=== PATIENT | female | born 1975 | race Caucasian/White ===

== ENCOUNTER 2016-12-04 02:08 | Emergency (ER) | payer BC, OTHER ==
[~2016-12-04] VITALS: Ht 172.7 cm; Wt 65.0 kg
[2016-12-04 02:12] VITALS: BP 209/148; PULSE 137; RESP 18; TEMP 98.1; O2SAT 97
[2016-12-04 02:32] VITALS: BP 179/111; PULSE 102; RESP 18; TEMP 98.1; O2SAT 98
[2016-12-04 02:40] VITALS: BP_SYST 160; BP_SYST 190; BP_DIAS 110; BP_DIAS 75; PULSE 87; RESP 22; O2SAT 97
[2016-12-04] MEDS ORDERED: SODIUM CHLORIDE 0.9% FLUSH 5 ML FLUSH IVF PRN (02:45)
[2016-12-04] MEDS ORDERED: ASPIRIN 81 MG CHEW TAB PO ONE (02:45)
[2016-12-04 02:51] LABS: AUTOMATED NEUTROPHIL # 4.4 TH/MM3 (1.8-7.7); BASOPHIL # 0.1 TH/MM3 (0-0.2); BASOPHIL % 0.7 % (0.0-2.0); EOSINOPHIL # 0.3 TH/MM3 (0-0.4); EOSINOPHIL % 3.4 % (0.0-4.0); HEMATOCRIT 40.4 % (35.0-46.0); HEMO FLAGS DIFF FINAL; LYMPH % 42.4 % (9.0-44.0); LYMPHOCYTE # 4.1 TH/MM3 (1.0-4.8); MEAN CELL VOLUME 95.5 FL (80.0-100.0); MEAN CORPUSCULAR HEMOGLOBIN 34.2 PG (27.0-34.0); MEAN CORPUSCULAR HGB CONC 35.8 % (32.0-36.0); NEUT % 45.5 % (16.0-70.0); PLATELET COUNT 290 TH/MM3 (150-450); RED BLOOD COUNT 4.23 MIL/MM3 (4.00-5.30); RED CELL DISTRIBUTION WIDTH 12.7 % (11.6-17.2); WHITE BLOOD COUNT 9.6 TH/MM3 (4.0-11.0)
[2016-12-04 03:00] LABS: APTT (PATIENT) 28.3 SEC (24.3-30.1); INTERNATIONAL NORMALIZED RATIO 0.9 RATIO; PROTHROMBIN TIME - PATIENT 10.2 SEC (9.8-11.6)
[2016-12-04 03:36] LABS: ALKALINE PHOSPHATASE 74 U/L (45-117); ALT (GPT) 37 U/L (10-53); AST (GOT) 27 U/L (15-37); BLOOD UREA NITROGEN 10 MG/DL (7-18); CHLORIDE 108 MEQ/L (98-107); GLOMERULAR FILTRATION RATE 75 ML/MIN (>89); MAGNESIUM 1.9 MG/DL (1.5-2.5); SODIUM (NA) 144 MEQ/L (136-145); TOTAL BILIRUBIN ADULT 0.6 MG/DL (0.2-1.0)
[2016-12-04 03:38] LABS: ANION GAP 11 MEQ/L (5-15); BICARBONATE 25.1 MEQ/L (21.0-32.0)
[2016-12-04 03:49] LABS: POTASSIUM 2.9 MEQ/L (3.5-5.1)
--- NOTE | 2016-12-04 04:30 | RADRPT ---
EXAM DATE/TIME: 12/04/2016 03:28 [place] COMPARISON: No previous studies available for comparison. INDICATIONS : Patient states chest pains and shortness of breath. MEDICAL HISTORY : None. SURGICAL HISTORY : None. ENCOUNTER: Initial ACUITY: 1 day PAIN SCORE: 2/10 LOCATION: Bilateral chest FINDINGS: PA and lateral views of the chest demonstrate the lungs to be symmetrically aerated without evidence of mass, infiltrate or effusion. The cardiomediastinal contours are unremarkable. Osseous structure s are intact. CONCLUSION: No acute disease. Adama Toledo MD on December 04, 2016 at 4:28 Board Certified Radiologist. This report was verified electronically.
--- NOTE | 2016-12-04 04:45 | PD ---
HPI Chief Complaint: Chest Pain Time Seen by Provider: 02:37 Travel History International Travel<30 days: No Contact w/Intl Traveler<30days: No Traveled to known affect area: No History of Present Illness HPI Patient is a 41-year-old female presents to emergency department with epigastric and chest pain. Patient states this is happening to her and her mainly in the past. She is a common in by her mother and father. Patient was being fairly rude to nursing and was reluctant to give a history. She does tell me that she's been having some epigastric pain on and off for some months. Denies history of nausea or vomiting and no hematochezia or hematocrit emesis. Patient denies any history of tight sensation stasis more burning. Denies radiation. Denies shortness of breath. Patient is having a smoking history but denies alcohol ingestion to me tonight. Denies fever denies cough. No family history of early CA. PFSH Past Medical History Cardiovascular Problems: Yes (aortic insuficiency ) Medical other: Yes Tetanus Vaccination: Unknown Influenza Vaccination: No ?: Not LMP: IUD : 2 Para: 2 Past Surgical History Other Surgery: Yes (boobs ) Social History Alcohol Use: Yes (social ) Tobacco Use: Yes Substance Use: No Allergies-Medications (Allergen,Severity, Reaction): Coded Allergies: Penicillin (Unverified Adverse Reaction, Mild, 12/04/16) Reported Meds & Prescriptions Reported Meds & Active Scripts Active No Active Prescriptions or Reported Medications Review of Systems Except as stated in HPI: all other systems reviewed are Neg Physical Exam Narrative GENERAL: Well-developed well-nourished, no apparent distress, somewhat belligerent but easily redirectable. Smells of alcohol. She is wearing footy pajamas. SKIN: Warm and dry. HEAD: Atraumatic. Normocephalic. EYES: Pupils equal and round. No scleral icterus. No injection or drainage. ENT: No nasal bleeding or discharge. Mucous membranes pink and moist. NECK: Trachea midline. No JVD. CARDIOVASCULAR: Regular rate and rhythm. No murmur appreciated. RESPIRATORY: No accessory muscle use. Clear to auscultation. Breath sounds equal bilaterally. GASTROINTESTINAL: Abdomen soft, non-tender, nondistended. Hepatic and splenic margins not palpable. MUSCULOSKELETAL: No obvious deformities. No clubbing. No cyanosis. No edema. NEUROLOGICAL: Awake and alert. No obvious cranial nerve deficits. Motor grossly within normal limits. Normal speech. PSYCHIATRIC: Appropriate mood and affect; insight and judgment normal. Data Data Last Documented VS Vital Signs Date Time Temp Pulse Resp B/P Pulse Ox O2 Delivery O2 Flow Rate FiO2 12/04/16 02:40 97 Room Air 12/04/16 02:40 87 22 160/75 190/110 12/04/16 02:32 98.1 Orders Electrocardiogram (12/04/16 02:37) Complete Blood Count With Diff (12/04/16 02:37) Comprehensive Metabolic Panel (12/04/16 02:37) Magnesium (Mg) (12/04/16 02:37) Prothrombin Time / Inr (Pt) (12/04/16 02:37) Act Partial Throm Time (Ptt) (12/04/16 02:37) Troponin I (12/04/16 02:37) Ecg Monitoring (12/04/16 02:37) Bilateral Bp Monitoring (12/04/16 02:37) Iv Access Insert/Monitor (12/04/16 02:37) Oximetry (12/04/16 02:37) Oxygen Administration (12/04/16 02:37) Aspirin Chew (Aspirin Chew) (12/04/16 02:45) Sodium Chloride 0.9% Flush (Ns Flush) (12/04/16 02:45) Chest, Pa & Lat (12/04/16 02:37) Alcohol (Ethanol) (12/04/16 03:15) Labs Laboratory Tests Test 12/04/16 02:40 White Blood Count 9.6 TH/MM3 Red Blood Count 4.23 MIL/MM3 Hemoglobin 14.5 GM/DL Hematocrit 40.4 % Mean Corpuscular Volume 95.5 FL Mean Corpuscular Hemoglobin 34.2 PG Mean Corpuscular Hemoglobin 35.8 % Concent Red Cell Distribution Width 12.7 % Platelet Count 290 TH/MM3 Mean Platelet Volume 7.6 FL Neutrophils (%) (Auto) 45.5 % Lymphocytes (%) (Auto) 42.4 % Monocytes (%) (Auto) 8.0 % Eosinophils (%) (Auto) 3.4 % Basophils (%) (Auto) 0.7 % Neutrophils # (Auto) 4.4 TH/MM3 Lymphocytes # (Auto) 4.1 TH/MM3 Monocytes # (Auto) 0.8 TH/MM3 Eosinophils # (Auto) 0.3 TH/MM3 Basophils # (Auto) 0.1 TH/MM3 CBC Comment DIFF FINAL Differential Comment Prothrombin Time 10.2 SEC Prothromb Time International 0.9 RATIO Ratio Activated Partial 28.3 SEC Thromboplast Time Sodium Level 144 MEQ/L Potassium Level 2.9 MEQ/L Chloride Level 108 MEQ/L Carbon Dioxide Level 25.1 MEQ/L Anion Gap 11 MEQ/L Blood Urea Nitrogen 10 MG/DL Creatinine 0.84 MG/DL Estimat Glomerular Filtration 75 ML/MIN Rate Random Glucose 98 MG/DL Calcium Level 8.3 MG/DL Magnesium Level 1.9 MG/DL Total Bilirubin 0.6 MG/DL Aspartate Amino Transf 27 U/L (AST/SGOT) Alanine Aminotransferase 37 U/L (ALT/SGPT) Alkaline Phosphatase 74 U/L Troponin I LESS THAN 0.02 NG/ML Total Protein 7.6 GM/DL Albumin 4.1 GM/DL Ethyl Alcohol Level 231 MG/DL [facility] Medical Decision Making Medical Screen Exam Complete: Yes Emergency Medical Condition: Yes Interpretation(s) EKG shows normal sinus rhythm and normal axis normal R-wave progression. No concerning ST T changes intervals within normal limits. This is a normal EKG. Differential Diagnosis Alcohol intoxication, chest pain, esophagitis, ACS seems unlikely. Narrative Course Patient remained in the emergency department, appears well. Smells of alcohol though she initially declines this to me. Troponin negative, EKG reassuring and chest x-ray normal. Alcohol level returns at 3 times the legal limit for driving. Patient is near clinically sober at this time though she is somewhat angry she is easily redirectable. Her heart score is 1. Highly atypical for ACS. I think esophagitis given history of alcohol intake is possibility. I had a discussion with patient's mother and states that patient has been drinking heavily ever since the of her loved one approximately a year ago. States that she has been unresponsive to family questioning her about her alcohol intake. She does have a history of structural heart disease and they have told her time in time again that she should not be drinking as it may be bad for her heart. Currently she is perfusing her organs adequately and does not appear to be in CHF, nor does she have significant risk factors for coronary artery disease other than smoking. Discussed with the patient and family that she needs to follow-up with her primary care physician there is no indication for further emergent workup at this time. Patient verbalized understanding. Patient's parents verbalized understanding and agreement and will take care of the patient overnight as she is intoxicated they've accepted responsibility for her. I did have a conversation with the patient regarding her drinking habits however at this time she is heavily into a state of denial and is not amenable for conversations regarding specific alcohol recovery programs. Diagnosis Primary Impression: Atypical chest pain Additional Impression: Alcohol intoxication Qualified Code: F10.120 - Alcohol intoxication, uncomplicated Scripts No Active Prescriptions or Reported Meds Disposition: 01 DISCHARGE HOME Condition: Stable Marky Interiano MD Dec 04, 2016 04:45
--- NOTE | 2016-12-04 10:46 | EKG ---
Date Performed: 12/04/2016 Time Performed: 02:35:14 PTAGE: 41 years EKG: Sinus rhythm NORMAL ECG NO PREVIOUS TRACING DOCTOR: Los Nguyễn Interpretating Date/Time 12/04/2016 10:44:07
== END 2016-12-04 04:54 | disposition home or self-care (01) ==
LOC: NEPC 02:08
DX: R07.89 Other chest pain (principal); F10.920 Alcohol use, unspecified with intoxication, uncomplicated; I35.1 Nonrheumatic aortic (valve) insufficiency; Z72.0 Tobacco use
CPT/HCPCS: 71020; 80053; 80320; 83735; 84484; 85025; 85610; 85730; 93005